=== PATIENT | female | born 1980 | race Caucasian/White ===

== ENCOUNTER 2023-03-13 16:32 | Emergency (ER) | payer BC ==
[~2023-03-13] VITALS: Ht 157.5 cm; Wt 62.1 kg
[2023-03-13 18:13] VITALS: BP_SYST 122; PULSE 61; RESP 16; TEMP 98.1; O2SAT 98
[2023-03-13 18:23] LABS: BASOPHILS % (AUTO) 0.5 % (0.0-2.0); EOSINOPHILS # (AUTO) 0.3 K/uL (0.0-0.4); EOSINOPHILS % (AUTO) 4.8 % (0.0-4.0); HEMATOCRIT 41.2 % (36-48); HEMOGLOBIN 14.4 g/dL (12.0-16.0); LYMPHOCYTES % (AUTO) 32.2 % (20.5-51.5); MEAN CORPUSCULAR HEMOGLOBIN 30 pg (27-31); MEAN CORPUSCULAR HGB CONC 35 % (32-36); MEAN CORPUSCULAR VOLUME 87 fL (79.0-98.0); MONOCYTES # (AUTO) 0.5 K/uL (0.0-1.0); MONOCYTES % (AUTO) 7.7 % (1.7-9.3); NEUTROPHILS # (AUTO) 3.4 K/uL (1.8-7.7); NEUTROPHILS % (AUTO) 54.8 % (40.0-70.0); PLATELET COUNT (AUTO) 259 K/uL (130-430); RED BLOOD CELL COUNT(AUTO) 4.72 MIL/uL (4.2-6.2); RED CELL DISTRIBUTION WIDTH 12.9 % (9.0-15.0); WHITE BLOOD COUNT (AUTO) 6.2 K/uL (4.8-10.8)
[2023-03-13 18:34] LABS: COVID19 ANTIGEN SOFIA FIA NEGATIVE (NEGATIVE)
[2023-03-13 18:35] LABS: INFLUENZA TYPE B NEGATIVE (NEGATIVE)
[2023-03-13 18:37] LABS: PROTHROMBIN TIME 10.3 SECS (9.5-12.5)
[2023-03-13 18:38] LABS: INFLUENZA TYPE A Positive (NEGATIVE)
[2023-03-13 18:39] LABS: ALBUMIN 3.8 g/dL (3.4-4.8); CALCIUM 8.2 mg/dL (8.4-11.0); CREATININE 0.7 mg/dL (0.55-1.30); POTASSIUM 3.8 mmol/L (3.5-5.1); TOTAL BILIRUBIN 0.2 mg/dL (0.0-1.0); TOTAL PROTEIN, SERUM 7.8 g/dL (6.4-8.3)
[2023-03-13 18:48] LABS: BILIRUBIN,DIRECT 0.1 mg/dL (0.0-0.3)
[2023-03-13 18:55] LABS: SERUM HCG (QUALITATIVE) NEGATIVE (NEGATIVE)
[2023-03-13 19:34] LABS: BILIRUBIN,URINE NEGATIVE (NEGATIVE); CLARITY/URINE CLEAR (CLEAR); COLOR,URINE YELLOW (YELLOW); GLUCOSE,URINE NEGATIVE (NEGATIVE); KETONES,URINE NEGATIVE (NEGATIVE); LEUKOCYTE ESTERASE ,URINE NEGATIVE (NEGATIVE); NITRITE, URINE NEGATIVE (NEGATIVE); PROTEIN URINE NEGATIVE (NEGATIVE); UROBILINOGEN,URINE 0.2 (0.2-1.0)
[2023-03-13 19:37] LABS: BLOOD, URINE TRACE (NEGATIVE)
[2023-03-13 19:52] LABS: BACTERIA,URINE None Seen /HPF (None Seen); RBC,URINE 0-3 /HPF (0-3); WBC,URINE 0-3 /HPF (0-3)
[2023-03-13] MEDS ORDERED: ONDA-8 TL (21:09)
[2023-03-13] MEDS ORDERED: ONDANSETRON 4 MG ODT TAB PO ONE (21:15)
[2023-03-13 21:19] VITALS: BP_SYST 121; PULSE 68; RESP 16; TEMP 98.6; O2SAT 100
== END 2023-03-13 21:19 | disposition home or self-care (01) ==
LOC: SED 16:32
DX: J10.1 Influenza due to other identified influenza virus with other respiratory manifestations (principal); B97.89 Other viral agents as the cause of diseases classified elsewhere; R05.9 Cough, unspecified; R09.81 Nasal congestion; J34.89 Other specified disorders of nose and nasal sinuses; Z79.899 Other long term (current) drug therapy; Z20.822 Contact with and (suspected) exposure to COVID-19
CPT/HCPCS: 99284; 71045; 87426; 80076; 80048; 81001; 82150; 84703; 83690; 85025; 85610; 85730; 36415; 83605; 87804 ×2; 82397; 81000; 81015; Q0162